=== PATIENT | female | born 1930 | race Caucasian/White ===

== ENCOUNTER → 2017-06-07 | Outpatient (CLI) | payer OTHER ==
[2016-04-09 12:54] VITALS: BP 158/94
--- NOTE | 2017-06-07 13:53 | CT ---
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 Comparison: None Findings: The ventricles and sulci are prominent without mass effect. There is periventricular white matter disease most severe posteriorly in the parietal lobes. There is no hemorrhage or mass or kimberly ma or subdural collection of fluid. The paranasal sinuses are clear. There is a subcutaneous hematom a posteriorly. There is no skull fracture or depression. Impression: 1. No acute intracranial disease 2. 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 3. Mild atrophy Reported By:
== END | disposition home or self-care (01) ==
LOC: RAD 13:23
PROVIDERS: ATTEND Obstetrics & Gynecology Obstetrics
DX: G31.89 Other specified degenerative diseases of nervous system (principal); W19.XXXA Unspecified fall, initial encounter
CPT/HCPCS: 70450

== ENCOUNTER 2017-06-09 16:43 | Emergency (ER) | payer OTHER ==
[2017-06-09 17:58] VITALS: BP 112/58; BMI 20.1
== END 2017-06-09 19:03 | disposition other institution (70) ==
LOC: ER 18:39
DX: M25.551 Pain in right hip (principal); W19.XXXA Unspecified fall, initial encounter; Y92.9 Unspecified place or not applicable
CPT/HCPCS: 96374; 99282; A4222

== ENCOUNTER 2017-06-09 18:37 | Inpatient (IN) | payer OTHER ==
[2017-06-09] MEDS ORDERED: MORPHINE SULFATE INJ 2 MG IVP PRN (18:41)
[2017-06-09 19:58] LABS: BASOPHILS % (AUTO) 0.2 % (0.2-1.0); EOSINOPHILS % (AUTO) 0.3 % (0.9-2.9); HEMATOCRIT 34.8 % (36.0-47.0); HEMOGLOBIN 11.8 g/dL (12.0-16.0); LYMPHOCYTES # (AUTO) 0.6 X10^3/uL (1.3-2.9); LYMPHOCYTES % (AUTO) 7.8 % (21.0-51.0); MEAN CORPUSCULAR HEMOGLOBIN 31.5 pg (27.0-34.0); MEAN CORPUSCULAR VOLUME 92.4 fL (80.0-100.0); MEAN PLATELET VOLUME 9.5 fL (7.4-11.0); MONOCYTES # (AUTO) 0.3 x10^3/uL (0.3-0.8); MONOCYTES % (AUTO) 3.9 % (0.0-13.0); NEUTROPHILS # (AUTO) 6.7 x10^3/uL (2.2-4.8); NEUTROPHILS % (AUTO) 87.8 % (42.0-75.0); PLATELET COUNT 133 X10^3/uL (150.0-450.0); RED BLOOD COUNT 3.76 X10^6/uL (3.5-5.4); RED CELL DISTRIBUTION WIDTH 13.5 % (11.6-16.5); WHITE BLOOD COUNT 7.6 X10^3/uL (3.6-10.0)
[2017-06-09 20:14] LABS: ALANINE AMINOTRANSFERASE 25 Units/L (12-78); ALBUMIN 2.9 g/dL (3.4-5.0); ALKALINE PHOSPHATASE 75 Units/L (46-116); ASPARTATE AMINO TRANSFERASE 30 Units/L (15-37); BLOOD UREA NITROGEN 32 mg/dL (7-18); CALCIUM 9.3 mg/dL (8.5-10.1); CARBON DIOXIDE 23.6 mmol/L (21-32); CHLORIDE 105 mmol/L (98-107); COR CA(FOR HYPOALB) 10.2 mg/dL (8.5-10.1); CREATININE 1.25 mg/dL (0.55-1.02); GLUCOSE 107 mg/dL (65-99); SODIUM 137 mmol/L (136-145); TOTAL PROTEIN 6.8 g/dL (6.4-8.2); eGFR BLACK RACES 53 (>60); eGFR NON BLACK RACES 43 (>60)
[2017-06-09] MEDS: NS 1000 ML 1,000 ML IV SCH (22:04)
[2017-06-10 08:24] LABS: BASOPHILS % (AUTO) 0.1 % (0.2-1.0); EOSINOPHILS # (AUTO) 0.1 x10^3/uL (0.0-0.2); EOSINOPHILS % (AUTO) 0.9 % (0.9-2.9); HEMATOCRIT 36.9 % (36.0-47.0); HEMOGLOBIN 12.6 g/dL (12.0-16.0); LYMPHOCYTES # (AUTO) 0.9 X10^3/uL (1.3-2.9); LYMPHOCYTES % (AUTO) 13.5 % (21.0-51.0); MEAN CORPUSCULAR HEMOGLOBIN 31.5 pg (27.0-34.0); MEAN CORPUSCULAR VOLUME 92.5 fL (80.0-100.0); MEAN PLATELET VOLUME 10.5 fL (7.4-11.0); MONOCYTES # (AUTO) 0.3 x10^3/uL (0.3-0.8); MONOCYTES % (AUTO) 4.6 % (0.0-13.0); NEUTROPHILS # (AUTO) 5.2 x10^3/uL (2.2-4.8); NEUTROPHILS % (AUTO) 80.9 % (42.0-75.0); PLATELET COUNT 136 X10^3/uL (150.0-450.0); RED BLOOD COUNT 3.99 X10^6/uL (3.5-5.4); WHITE BLOOD COUNT 6.5 X10^3/uL (3.6-10.0)
[2017-06-10 08:49] LABS: ALANINE AMINOTRANSFERASE 26 Units/L (12-78); ALKALINE PHOSPHATASE 78 Units/L (46-116); ASPARTATE AMINO TRANSFERASE 33 Units/L (15-37); BLOOD UREA NITROGEN 28 mg/dL (7-18); CALCIUM 9.1 mg/dL (8.5-10.1); CARBON DIOXIDE 23.8 mmol/L (21-32); CHLORIDE 101 mmol/L (98-107); COR CA(FOR HYPOALB) 9.9 mg/dL (8.5-10.1); CREATININE 1.04 mg/dL (0.55-1.02); GLUCOSE 78 mg/dL (65-99); SODIUM 130 mmol/L (136-145); TOTAL PROTEIN 7.2 g/dL (6.4-8.2); eGFR BLACK RACES > 60 (>60); eGFR NON BLACK RACES 54 (>60)
[2017-06-10 09:02] LABS: BILIRUBIN,URINE NEGATIVE (NEGATIVE); BLOOD/HEMOGLOBIN,URINE 3+ (NEGATIVE); GLUCOSE, URINE 1+ (NEGATIVE); KETONES,URINE 1+ (NEGATIVE); LEUKOCYTE ESTERASE ,URINE 1+ (NEGATIVE); NITRITES,URINE NEGATIVE (NEGATIVE); PROTEIN,URINE 2+ (NEGATIVE); UROBILINOGEN,URINE NORMAL (NORMAL)
[2017-06-10] MEDS ORDERED: MARCAINE/EPINEPHRINE ONE (09:21)
[2017-06-10] MEDS ORDERED: BACITRACIN VIAL ONE ×2 (09:22→09:23)
[2017-06-10] MEDS ORDERED: LR 1000 ML IV 1,000 ML IV ONE (09:42)
[2017-06-10] MEDS ORDERED: NS 50 ML IV + SPIKE MINIBAG* 50 ML IV ONE (09:43)
[2017-06-10] MEDS ORDERED: ANCEF VIAL 1 GM ONE (09:43)
[2017-06-10 10:04] LABS: APPEARANCE,URINE CLEAR (CLEAR); COLOR,URINE YELLOW (YELLOW)
[2017-06-10 10:05] LABS: BACTERIA,URINE NEGATIVE /HPF (NEGATIVE); SQUAMOUS EPITHELIAL CELL,UR FEW /HPF (NEGATIVE)
[2017-06-10] MEDS ORDERED: XYLOCAINE 2% and EPINEPHRINE 1:100,000 ONE (10:05)
[2017-06-10 10:06] LABS: AMORPHOUS SEDIMENT,UR TRACE /HPF (NEGATIVE); HYALINE CASTS, URINE FEW /LPF (NEGATIVE)
[2017-06-10] MEDS ORDERED: MARCAINE 0.5% 52 ML, NS 1000 ML 348 ML IJ PRN ×2 (10:37)
[2017-06-10] MEDS ORDERED: Q PUMP EPI PRN (10:37)
--- NOTE | 2017-06-10 10:46 | DR.CONSULT ---
Consult - Consultation for Day of: Date: 06/10/17 (rt hip intra capsular neck displaced fracture) - Chief Complaint Chief Complaint: long term resident. sustained a hip fracture. - Allergies Allergies/Adverse Reactions: Allergies Allergy/AdvReac Type Severity Reaction Status Date / Time No Known Drug Allergies Allergy Verified 06/10/17 00:51 [NKDA] - History of Present Illness History of Present Illness: fall and sustained rt hip fracture. unable to walk since then. - Past Medical History Past Medical History: Hypertension - Family History Family Medical History: Cancer, Hypertension - Social History Type of Tobacco Use: Smokeless How many years tobacco product used: 50 Alcohol Use: None Drug Use: None - Medications Home Medications: Acetaminophen [TYLENOL 325 MG TAB *] 650 mg PO Q4H 06/09/17 [History Confirmed 06/09/17] Lisinopril 5 mg PO DAILY 06/09/17 [History Confirmed 06/09/17] Megestrol Acetate [MEGACE TAB 40 MG *] 40 mg PO BID 06/09/17 [History Confirmed 06/09/17] Nicotine Patch 7 mg/24 Hr [NICODERM PATCH 7 MG *] 1 patch TD DAILY 06/09/17 [ History Confirmed 06/09/17] Quetiapine Fumarate [Seroquel] 50 mg PO DAILY 06/09/17 [History Confirmed ] - Physical Exam Vital Signs: Temperature 98.3 F Pulse Rate [Left Brachial] 73 Pulse Rate [Right Radial] 73 Respiratory Rate 20 Blood Pressure [Left Arm] 122/67 Blood Pressure [Right Arm] 142/74 Blood Pressure 112/58 O2 Sat by Pulse Oximetry 97 Musculoskeletal: Right, Hip, Swelling, Tender - Plan Plan: rt hip suma/total hip
--- NOTE | 2017-06-10 10:51 | DR.H&P ---
H&P - History & Physical for Day of: H&P Date: 06/10/17 (rt hip intra capsular neck fracture) - Chief Complaint Chief Complaint: slip and fall at the assisted. rt hip fracture. - Allergies Allergies/Adverse Reactions: Allergies Allergy/AdvReac Type Severity Reaction Status Date / Time No Known Drug Allergies Allergy Verified 06/10/17 00:51 [NKDA] - History of Present Illness History of Present Illness: fall and fractured the right hip. - Past Medical History Past Medical History: Hypertension - Family History Family Medical History: Cancer, Hypertension - Social History Type of Tobacco Use: Smokeless How many years tobacco product used: 50 Alcohol Use: None Drug Use: None - Medications Home Medications: Acetaminophen [TYLENOL 325 MG TAB *] 650 mg PO Q4H 06/09/17 [History Confirmed 06/09/17] Lisinopril 5 mg PO DAILY 06/09/17 [History Confirmed 06/09/17] Megestrol Acetate [MEGACE TAB 40 MG *] 40 mg PO BID 06/09/17 [History Confirmed 06/09/17] Nicotine Patch 7 mg/24 Hr [NICODERM PATCH 7 MG *] 1 patch TD DAILY 06/09/17 [ History Confirmed 06/09/17] Quetiapine Fumarate [Seroquel] 50 mg PO DAILY 06/09/17 [History Confirmed ] - Physical Exam Vital Signs: Temperature 98.3 F Pulse Rate [Left Brachial] 73 Pulse Rate [Right Radial] 73 Respiratory Rate 20 Blood Pressure [Left Arm] 122/67 Blood Pressure [Right Arm] 142/74 Blood Pressure 112/58 O2 Sat by Pulse Oximetry 97 Musculoskeletal: Right, Hip, Swelling, Tender - Assessment/Plan (1) Fracture of hip, right, closed Qualifiers: Encounter type: E Fracture healing: F Status: Acute (2) Osteoporosis Qualifiers: Osteoporosis type: O Presence of current pathological fracture: P Encounter type: E Fracture healing: F Status: Acute
[2017-06-10] MEDS ORDERED: NS IRRIGATION 3000 ML 3,000 ML with BACITRACIN VIAL 50,000 UNT IR ONE ×4 (11:28→11:29)
[2017-06-10] MEDS ORDERED: NS IRRIGATION 1000 ML 1,000 ML with BACITRACIN VIAL 50,000 UNT IR ONE ×2 (11:28)
[2017-06-10] MEDS ORDERED: REGLAN INJ 10 MG VIAL IVP PRN (13:21)
[2017-06-10] MEDS ORDERED: BENADRYL INJ 50 MG VIAL IVP PRN (13:21)
[2017-06-10] MEDS ORDERED: PHENERGAN INJ 25 MG IVP PRN (13:21)
[2017-06-10] MEDS ORDERED: ZOFRAN INJ 4 MG VIAL IVP PRN (13:21)
[2017-06-10] MEDS ORDERED: DILAUDID INJ IVP PRN (13:21)
--- NOTE | 2017-06-10 14:01 | RAD ---
CLINICAL HISTORY: Postop COMPARISON: June 09, 2017 FINDINGS: Right hip arthroplasty prosthesis in place. Unremarkable alignment of the right hip prosthesis. Soft tissue emphysema and edema and surgical leisa in place. IMPRESSION: Postoperative changes as discussed above. Reported By:
[2017-06-10 14:03] LABS: HEMATOCRIT 30.6 % (36.0-47.0); HEMOGLOBIN 10.3 g/dL (12.0-16.0)
[2017-06-10] MEDS ORDERED: XYLOCAINE 2 % (PLAIN) ONE (14:35)
[2017-06-10] MEDS ORDERED: VERSED ONE (14:35)
[2017-06-10] MEDS ORDERED: DIPRIVAN VIAL ONE (14:35)
[2017-06-10] MEDS ORDERED: EPHEDRINE SULFATE INJ ONE (14:35)
[2017-06-10] MEDS ORDERED: KETALAR ONE (14:51)
--- NOTE | 2017-06-10 15:08 | RAD ---
CLINICAL HISTORY: Postop COMPARISON: June 09, 2017 FINDINGS/IMPRESSION: Right hip arthroplasty prosthesis in place. Soft tissue emphysema and surgical leisa in place. Unr emarkable alignment of the prosthesis. Reported By:
[2017-06-10] MEDS: ANCEF VIAL 1 GM 1 GM in NS 50 ML IV + SPIKE MINIBAG* 50 ML IV SCH ×2 (16:32→20:30)
[2017-06-10] MEDS: NS 1000 ML 1,000 ML IV SCH ×2 (16:33→19:40)
--- NOTE | 2017-06-10 21:46 | RAD ---
Portable chest Indication: Preop Comparison: None available. Impression: Heart size is normal. The lungs are hyperexpanded with mild chronic interstitial prominence but othe rwise clear. There is no edema, effusion, focal consolidation, or pneumothorax. There is diffuse ost eopenia. Reported By:
[2017-06-10] MEDS: PERCOCET TAB 5/325 MG PO PRN (23:48)
[2017-06-11 02:31] VITALS: BMI 17.4
[2017-06-11] MEDS: ANCEF VIAL 1 GM 1 GM in NS 50 ML IV + SPIKE MINIBAG* 50 ML IV SCH ×4 (02:31→19:35)
[2017-06-11 05:18] LABS: BLOOD UREA NITROGEN 21 mg/dL (7-18); CALCIUM 7.8 mg/dL (8.5-10.1); CARBON DIOXIDE 22.5 mmol/L (21-32); CHLORIDE 105 mmol/L (98-107); CREATININE 0.93 mg/dL (0.55-1.02); GLUCOSE 82 mg/dL (65-99); SODIUM 136 mmol/L (136-145); eGFR BLACK RACES > 60 (>60); eGFR NON BLACK RACES > 60 (>60)
[2017-06-11 05:31] LABS: BASOPHILS % (AUTO) 0.1 % (0.2-1.0); EOSINOPHILS % (AUTO) 0.4 % (0.9-2.9); HEMOGLOBIN 9.3 g/dL (12.0-16.0); LYMPHOCYTES # (AUTO) 0.9 X10^3/uL (1.3-2.9); LYMPHOCYTES % (AUTO) 11.9 % (21.0-51.0); MEAN CORPUSCULAR HEMOGLOBIN 32.1 pg (27.0-34.0); MEAN CORPUSCULAR HGB CONC 34.3 g/dL (33.0-35.0); MEAN CORPUSCULAR VOLUME 93.5 fL (80.0-100.0); MEAN PLATELET VOLUME 10.5 fL (7.4-11.0); MONOCYTES # (AUTO) 0.5 x10^3/uL (0.3-0.8); MONOCYTES % (AUTO) 6.5 % (0.0-13.0); NEUTROPHILS # (AUTO) 5.8 x10^3/uL (2.2-4.8); NEUTROPHILS % (AUTO) 81.1 % (42.0-75.0); PLATELET COUNT 122 X10^3/uL (150.0-450.0); RED BLOOD COUNT 2.89 X10^6/uL (3.5-5.4); RED CELL DISTRIBUTION WIDTH 13.5 % (11.6-16.5); WHITE BLOOD COUNT 7.1 X10^3/uL (3.6-10.0)
[2017-06-11] MEDS: PERCOCET TAB 5/325 MG PO PRN ×2 (10:42→22:44)
[2017-06-11 14:12] LABS: HEMATOCRIT 28.9 % (36.0-47.0)
[2017-06-11] MEDS ORDERED: TYLENOL 325 MG TAB PO PRN (15:17)
[2017-06-11] MEDS: NS 1000 ML 1,000 ML IV SCH (22:45)
[2017-06-12] MEDS: ANCEF VIAL 1 GM 1 GM in NS 50 ML IV + SPIKE MINIBAG* 50 ML IV SCH ×3 (02:20→13:56)
[2017-06-12 05:21] LABS: BLOOD UREA NITROGEN 13 mg/dL (7-18); CARBON DIOXIDE 23.9 mmol/L (21-32); CHLORIDE 105 mmol/L (98-107); CREATININE 0.82 mg/dL (0.55-1.02); GLUCOSE 86 mg/dL (65-99); SODIUM 136 mmol/L (136-145); eGFR BLACK RACES > 60 (>60); eGFR NON BLACK RACES > 60 (>60)
[2017-06-12 05:25] LABS: BASOPHILS % (AUTO) 0.1 % (0.2-1.0); EOSINOPHILS # (AUTO) 0.1 x10^3/uL (0.0-0.2); EOSINOPHILS % (AUTO) 0.8 % (0.9-2.9); HEMATOCRIT 25.9 % (36.0-47.0); LYMPHOCYTES # (AUTO) 0.9 X10^3/uL (1.3-2.9); LYMPHOCYTES % (AUTO) 12.2 % (21.0-51.0); MEAN CORPUSCULAR HGB CONC 34.5 g/dL (33.0-35.0); MEAN CORPUSCULAR VOLUME 92.8 fL (80.0-100.0); MEAN PLATELET VOLUME 10.5 fL (7.4-11.0); MONOCYTES # (AUTO) 0.5 x10^3/uL (0.3-0.8); MONOCYTES % (AUTO) 6.1 % (0.0-13.0); NEUTROPHILS # (AUTO) 6.2 x10^3/uL (2.2-4.8); NEUTROPHILS % (AUTO) 80.8 % (42.0-75.0); PLATELET COUNT 112 X10^3/uL (150.0-450.0); RED CELL DISTRIBUTION WIDTH 13.8 % (11.6-16.5); WHITE BLOOD COUNT 7.6 X10^3/uL (3.6-10.0)
[2017-06-12] MEDS: NS 1000 ML 1,000 ML IV SCH (05:26)
[2017-06-12] MEDS ORDERED: NICODERM PATCH TD SCH (09:00)
[2017-06-12] MEDS ORDERED: ZESTRIL TAB 5 MG PO SCH (09:00)
[2017-06-12] MEDS: PERCOCET TAB 5/325 MG PO PRN (09:59)
[2017-06-12] MEDS ORDERED: DULCOLAX SUPPOSITORY 10 MG RECTAL ONE (11:26)
[2017-06-12] MEDS ORDERED: DULCOLAX SUPPOSITORY 10 MG ONE (13:41)
[2017-06-12 16:51] VITALS: BP 111/55
--- NOTE | 2017-06-13 10:24 | PCM.PROG ---
Progress Note - Progress Note for Day of Date: 06/12/17 (post op visit) - Subjective Subjective: she is doing well. she is ambulating well. her pain is well managed now. - Past Medical Family Social History Allergies: Allergies No Known Drug Allergies [NKDA] Allergy (Verified 06/10/17 00:51) - Vital Signs and I&O's Vital Signs: Temperature 97.5 F Pulse Rate [Left Brachial] 106 Pulse Rate [Right Radial] 73 Pulse Rate 76 Respiratory Rate 16 Blood Pressure [Left Arm] 111/55 Blood Pressure [Right Arm] 142/74 Blood Pressure 120/58 O2 Sat by Pulse Oximetry 99 Intake and Output: Intake & Output 06/10/17 06/11/17 06/12/17 06/13/17 11:59 11:59 11:59 11:59 Intake Total 50 470 820 240 Output Total 5250 325 400 400 Balance -5200 145 420 -160 - Physical Exam Musculoskeletal: Right (surgical wound clean and dry. ), Hip, Swelling, Tender Mood Description: Calm Speech Pattern: Clear, Appropriate - Laboratory and Diagnostics Result Diagrams: 06/12/17 04:30 06/12/17 04:30 Labs: Laboratory WBC 7.6 X10^3/uL (3.6-10.0) 06/12/17 04:30 RBC 2.80 X10^6/uL (3.5-5.4) L 06/12/17 04:30 Hgb 9.0 g/dL (12.0-16.0) L 06/12/17 04:30 Hct 25.9 % (36.0-47.0) L 06/12/17 04:30 MCV 92.8 fL (80.0-100.0) 06/12/17 04:30 MCH 32.0 pg (27.0-34.0) 06/12/17 04:30 MCHC 34.5 g/dL (33.0-35.0) 06/12/17 04:30 RDW 13.8 % (11.6-16.5) 06/12/17 04:30 Plt Count 112 X10^3/uL (150.0-450.0) L 06/12/17 04:30 MPV 10.5 fL (7.4-11.0) 06/12/17 04:30 Neut % 80.8 % (42.0-75.0) H 06/12/17 04:30 Lymph % 12.2 % (21.0-51.0) L 06/12/17 04:30 [place] % 6.1 % (0.0-13.0) 06/12/17 04:30 Eos % 0.8 % (0.9-2.9) L 06/12/17 04:30 Baso % 0.1 % (0.2-1.0) L 06/12/17 04:30 Neut # 6.2 x10^3/uL (2.2-4.8) H 06/12/17 04:30 Lymph # 0.9 X10^3/uL (1.3-2.9) L 06/12/17 04:30 [place] # 0.5 x10^3/uL (0.3-0.8) 06/12/17 04:30 Eos # 0.1 x10^3/uL (0.0-0.2) 06/12/17 04:30 Baso # 0.0 X10^3/uL (0.0-0.1) 06/12/17 04:30 Absolute Nucleated RBC 0.0 /100WBC 06/12/17 04:30 INR Target Range - 06/09/17 22:25 INR 1.21 (0.8-1.3) 06/09/17 22:25 PTT 36.6 SECONDS (22.9-36.5) H 06/09/17 22:25 PTT Comment - 06/09/17 22:25 Sodium 136 mmol/L (136-145) 06/12/17 04:30 Corrected Sodium TNP 06/12/17 04:30 Potassium 4.2 mmol/L (3.5-5.1) 06/12/17 04:30 Chloride 105 mmol/L (98-107) 06/12/17 04:30 Carbon Dioxide 23.9 mmol/L (21-32) 06/12/17 04:30 BUN 13 mg/dL (7-18) 06/12/17 04:30 Creatinine 0.82 mg/dL (0.55-1.02) 06/12/17 04:30 Est GFR (MDRD) Af Amer > 60 (>60) 06/12/17 04:30 Est GFR (MDRD) Non-Af > 60 (>60) 06/12/17 04:30 Glucose 86 mg/dL (65-99) 06/12/17 04:30 Calcium 8.0 mg/dL (8.5-10.1) L 06/12/17 04:30 Corrected Calcium 9.9 mg/dL (8.5-10.1) 06/10/17 07:05 Total Bilirubin 1.70 mg/dL (0.2-1.0) H 06/10/17 07:05 AST 33 Units/L (15-37) 06/10/17 07:05 ALT 26 Units/L (12-78) 06/10/17 07:05 Alkaline Phosphatase 78 Units/L (46-116) 06/10/17 07:05 Total Protein 7.2 g/dL (6.4-8.2) 06/10/17 07:05 Albumin 3.0 g/dL (3.4-5.0) L 06/10/17 07:05 Globulin 4.2 g/dL (2.5-4.5) 06/10/17 07:05 Albumin/Globulin Ratio 0.7 Ratio (1.1-2.1) L 06/10/17 07:05 Specimen Type Catherized urine 06/10/17 08:10 Urine Color Yellow (YELLOW) 06/10/17 08:10 Urine Appearance Clear (CLEAR) 06/10/17 08:10 Urine pH 5.0 (5.0 - 8.0) 06/10/17 08:10 Ur Specific [place] 1.020 (1.000-1.030) 06/10/17 08:10 Urine Protein 2+ (NEGATIVE) 06/10/17 08:10 Urine Glucose (UA) 1+ (NEGATIVE) 06/10/17 08:10 Urine Ketones 1+ (NEGATIVE) 06/10/17 08:10 Urine Occult Blood 3+ (NEGATIVE) 06/10/17 08:10 Urine Nitrite Negative (NEGATIVE) 06/10/17 08:10 Urine Bilirubin Negative (NEGATIVE) 06/10/17 08:10 Urine Urobilinogen Normal (NORMAL) 06/10/17 08:10 Ur Leukocyte Esterase 1+ (NEGATIVE) 06/10/17 08:10 Urine RBC 02 - 05 /HPF (NEGATIVE) 06/10/17 08:10 Urine WBC 01 - 03 /HPF (NEGATIVE) 06/10/17 08:10 Ur Squamous Epith Cells Few /HPF (NEGATIVE) 06/10/17 08:10 Amorphous Sediment Trace /HPF (NEGATIVE) 06/10/17 08:10 Urine Bacteria Negative /HPF (NEGATIVE) 06/10/17 08:10 Hyaline Casts Few /LPF (NEGATIVE) 06/10/17 08:10 Ur Culture Indicated? No/not indicated 06/10/17 08:10 Blood Type O NEGATIVE 06/09/17 22:25 Antibody Screen Negative 06/09/17 22:25 Crossmatch See Detail 06/09/17 22:25 - Plan (1) Fracture of hip, right, closed Status: Acute Qualifiers: Encounter type: E Fracture healing: F Plan: status post rt hip suma replacement. 1. WB as tolerated. 2. Follow hip precations in bed for 6 weeks. 3.Anti DVT as advised. 4. Follw up in office at 2 weeks. (2) Osteoporosis Status: Acute Qualifiers: Osteoporosis type: O Presence of current pathological fracture: P Encounter type: E Fracture healing: F
== END 2017-06-12 18:10 | DRG 481 ==
LOC: MED/SURG 18:37
PROVIDERS: ADMIT Internal Medicine; ATTEND Obstetrics & Gynecology Obstetrics
PROC: 0QS604Z Reposition Right Upper Femur with Internal Fixation Device, Open Approach (ICD-10-PCS; principal; 2017-06-09)
DX: S72.011A Unspecified intracapsular fracture of right femur, initial encounter for closed fracture (principal); W18.39XA Other fall on same level, initial encounter; Y92.128 Other place in nursing home as the place of occurrence of the external cause; M80.851A Other osteoporosis with current pathological fracture, right femur, initial encounter for fracture; F03.90 Unspecified dementia, unspecified severity, without behavioral disturbance, psychotic disturbance, mood disturbance, and anxiety; R26.89 Other abnormalities of gait and mobility; I10 Essential (primary) hypertension
CPT/HCPCS: 36415; 71010; 72170; 73501; 80048; 80053; 81001; 85014; 85018; 85025; 85610; 85730; 86850; 86900; 86901; 86922; 93005; 93010; 94762; 99231; A4216; A4222; S0020; J0690; J2001; J2250; J2270; J3490; J7120

== ENCOUNTER 2017-06-15 17:18 | Emergency (ER) | payer OTHER ==
[~2017-06-15 17:18] MED LIST: NARCAN INJ ONE
[2017-06-15 17:26] VITALS: BMI 19.5
[2017-06-15] MEDS ORDERED: NARCAN INJ IVP ONE ×2 (17:28→17:45)
[2017-06-15] MEDS ORDERED: ASPIRIN 81 MG CHEWTAB ONE (17:41)
[2017-06-15] MEDS ORDERED: NARCAN INJ ONE (17:44)
[2017-06-15] MEDS ORDERED: NS 1000 ML 300 ML IV SCH (18:00)
[2017-06-15] MEDS ORDERED: ASPIRIN 81 MG CHEWTAB PO SCH (18:00)
[2017-06-15] MEDS ORDERED: CARDIZEM INJ 50 MG VIAL ONE (18:07)
[2017-06-15] MEDS ORDERED: CARDIZEM INJ 50 MG VIAL IVP ONE (18:10)
--- NOTE | 2017-06-15 18:36 | DR.AMS ---
HPI - Time Seen Time seen: 16:00 - PCP Primary Care Physician: JULIUS BOOTH - HPI Comment HPI Comment: Pt was was noted by [facility] staff to have a faint pulse.She was immediately wheeled to the ED and upon arrival was arousable with a pulse of 80. She is demented and unable to give any info. - Complaint Cheif Complaint Doctors Comments: Faint pulse per nusing home staff. Chief Complaint:: PT ANTUNEZ OVER IN STRETCHER PER TONH WITH C/O STAFF NO ABLE TO GET VS ON PT AND A FAINT PULSE.. Self Treatment fo Chief Complaint: PT IS PALE AND ARROUSES TO STERNAL STIMULI,, - Reviewed Nurses Notes Reviewed: Yes - Source History Provided: [facility] - Mode of Arrival Mode of Arrival: Stretcher - Timing Onset of Chief Complaint: 06/15/17 Came On: Suddenly Symptoms: Improving Symptom Onset: Unknown - Duration Duration: Unknown - Quality Quality: Decreased Alertness, Confusion - Severity Severity: Moderate - Context Recent: None History Of: Dementia - Associated Signs and Symptoms Associated Signs and Symptoms: None PMH - PMH Past Medical History: Yes Past Medical History: Hypertension Past Surgical History: No - Family History History of Family Medical Conditions: No - Social History Does patient currently use any type of tobacco product: No Have you used tobacco products in the last 12 months: No Type of Tobacco Use: None Does any household member use tobacco: No Alcohol Use: None Do you use any recreational Drugs:: No Lives With: Family Lives Where: [facility] - infectious screening In the last 2 months have you had wt loss of >10#?: NO Have you had fever, night sweats or hemotysis?: No Have you traveled outside the country in the last 6 months?: No Isolation: Standard ROS - Review of Systems Unable to Obtain Due To: Dementia PE - Vitals Vital Signs: Temp Pulse Pulse Resp BP BP BP 06/15/17 19:15 61 18 71/34 06/15/17 19:00 62 16 79/32 06/15/17 18:22 72 16 101/52 06/15/17 17:22 98.0 F 100 H 20 80/40 06/14/17 16:07 112/58 06/12/17 16:00 111/55 06/10/17 04:00 142/74 Pulse Ox 06/15/17 19:15 97 06/15/17 19:00 95 06/15/17 18:22 100 06/15/17 17:22 97 06/14/17 16:07 06/12/17 16:00 06/10/17 04:00 - General Limitations: Altered Mental Status General Appearance: Lethargic - Head Head Exam: Normal Inspection, Atraumatic - Eyes Eye exam: Normal Appearance, PERRL - ENT ENT Exam: Normal Exam, Normal Oropharynx, Mucous Membranes Moist Nose Exam: Normal Nose Exam Mouth Exam: Normal Inspection Throat Exam: Normal Inspection - Neck Neck Exam: Normal Inspection, Trachea Midline - Chest Chest Inspection: Normal Inspection, Symmetric Chest Wall Rise - Respiratory Respiratory Exam: Normal Lung Sounds Bilat Respiratory Exam: Bilateral Clear to Auscultation - Cardiovascular Cardiovascular Exam: Tachycardia, Irregular Rhythm - Abdominal Exam Abdominal Exam: Normal Inspection, Normal Bowel Sounds, Soft - Neurological Neurological Exam: Other (on stretcher, s/p hip fracture/ healing slowly) - Psychological Psychiatric Exam: Depressed - Skin Skin Exam: Warm, Dry, Intact, Normal Color MDM - Differential Diagnosis Metabolic: Dehydration Course - Reevaluation 1st: Improved ROR - Labs Reviewed Laboratory Results Reviewed?: Yes Result Diagrams: 06/15/17 17:37 06/15/17 17:27 Laboratory: WBC 8.8 X10^3/uL (3.6-10.0) 06/15/17 17:37 RBC 2.79 X10^6/uL (3.5-5.4) L 06/15/17 17:37 Hgb 8.9 g/dL (12.0-16.0) L 06/15/17 17:37 Hct 26.1 % (36.0-47.0) L 06/15/17 17:37 MCV 93.8 fL (80.0-100.0) 06/15/17 17:37 MCH 31.9 pg (27.0-34.0) 06/15/17 17:37 MCHC 34.0 g/dL (33.0-35.0) 06/15/17 17:37 RDW 14.0 % (11.6-16.5) 06/15/17 17:37 Plt Count 229 X10^3/uL (150.0-450.0) 06/15/17 17:37 MPV 9.7 fL (7.4-11.0) 06/15/17 17:37 Neut % 75.9 % (42.0-75.0) H 06/15/17 17:37 Lymph % 16.7 % (21.0-51.0) L 06/15/17 17:37 [place] % 5.9 % (0.0-13.0) 06/15/17 17:37 Eos % 1.1 % (0.9-2.9) 06/15/17 17:37 Baso % 0.4 % (0.2-1.0) 06/15/17 17:37 Neut # 6.7 x10^3/uL (2.2-4.8) H 06/15/17 17:37 Lymph # 1.5 X10^3/uL (1.3-2.9) 06/15/17 17:37 [place] # 0.5 x10^3/uL (0.3-0.8) 06/15/17 17:37 Eos # 0.1 x10^3/uL (0.0-0.2) 06/15/17 17:37 Baso # 0.0 X10^3/uL (0.0-0.1) 06/15/17 17:37 Absolute Nucleated RBC 0.0 /100WBC 06/15/17 17:37 Sodium 139 mmol/L (136-145) 06/15/17 17:27 Corrected Sodium TNP 06/15/17 17:27 Potassium 4.3 mmol/L (3.5-5.1) 06/15/17 17:27 Chloride 106 mmol/L (98-107) 06/15/17 17:27 Carbon Dioxide 24.2 mmol/L (21-32) 06/15/17 17:27 BUN 25 mg/dL (7-18) H 06/15/17 17:27 Creatinine 1.21 mg/dL (0.55-1.02) H 06/15/17 17:27 Est GFR (MDRD) Af Amer 55 (>60) L 06/15/17 17:27 Est GFR (MDRD) Non-Af 45 (>60) L 06/15/17 17:27 Glucose 110 mg/dL (65-99) H 06/15/17 17:27 Calcium 8.3 mg/dL (8.5-10.1) L 06/15/17 17:27 Corrected Calcium 10.0 mg/dL (8.5-10.1) 06/15/17 17:27 Total Bilirubin 0.90 mg/dL (0.2-1.0) 06/15/17 17:27 AST 22 Units/L (15-37) 06/15/17 17:27 ALT 11 Units/L (12-78) L 06/15/17 17:27 Alkaline Phosphatase 85 Units/L (46-116) 06/15/17 17:27 Creatine Kinase 44 Units/L (26-192) 06/15/17 20:25 CK-MB (CK-2) < 1.0 ng/mL (0-4.0) 06/15/17 20:25 CK/CKMB % Calc 2.3 % (<4) 06/15/17 20:25 Troponin I 0.04 ng/mL (0-1.5) 06/15/17 20:25 Total Protein 6.1 g/dL (6.4-8.2) L 06/15/17 17:27 Albumin 1.9 g/dL (3.4-5.0) L 06/15/17 17:27 Globulin 4.2 g/dL (2.5-4.5) 06/15/17 17:27 Albumin/Globulin Ratio 0.5 Ratio (1.1-2.1) L 06/15/17 17:27 - Diagnosis Discharge Problem: Dehydration, Supraventricular bigeminy, Supraventricular tachycardia by ECG Fracture of hip, right, closed Qualifiers: Encounter type: sequela Qualified Code(s): S72.001S - Fracture of unspecified part of neck of right femur, sequela Altered mental status, unspecified Qualifiers: Altered mental status type: disorientation Qualified Code(s): R41.0 - Disorientation, unspecified Hypotension Qualifiers: Hypotension type: idiopathic hypotension Qualified Code(s): I95.0 - Idiopathic hypotension - Discharge Plan Disposition: 03 [facility] Condition: Stable - Follow ups/Referrals Follow ups/Referrals: KESHA MADRID [Primary Care Provider] - 3 days - Instructions Instructions: Paroxysmal Supraventricular Tachycardia, [id number], Hypotension, [id number]
[2017-06-15 18:42] LABS: ALANINE AMINOTRANSFERASE 11 Units/L (12-78); ALBUMIN 1.9 g/dL (3.4-5.0); ALKALINE PHOSPHATASE 85 Units/L (46-116); ASPARTATE AMINO TRANSFERASE 22 Units/L (15-37); BLOOD UREA NITROGEN 25 mg/dL (7-18); CALCIUM 8.3 mg/dL (8.5-10.1); CARBON DIOXIDE 24.2 mmol/L (21-32); CHLORIDE 106 mmol/L (98-107); CREATININE 1.21 mg/dL (0.55-1.02); GLUCOSE 110 mg/dL (65-99); SODIUM 139 mmol/L (136-145); TOTAL PROTEIN 6.1 g/dL (6.4-8.2); eGFR BLACK RACES 55 (>60); eGFR NON BLACK RACES 45 (>60)
[2017-06-15] MEDS ORDERED: NS 1000 ML 1,000 ML ONE (19:20)
[2017-06-15] MEDS ORDERED: NS 1000 ML 1,000 ML IV SCH (20:00)
--- NOTE | 2017-06-15 20:08 | RAD ---
HISTORY: Altered mental status and hypotension Study: Single view of the chest. Comparison: 2016 Findings: The cardiomediastinal silhouette is normal. No focal consolidations, pleural effusions or pneumothora x. Osseous structures demonstrate no acute abnormality. Coarsened interstitial markings. IMPRESSION: 1. No acute cardiopulmonary process. Reported By:
[2017-06-15 20:45] LABS: BASOPHILS % (AUTO) 0.4 % (0.2-1.0); EOSINOPHILS # (AUTO) 0.1 x10^3/uL (0.0-0.2); EOSINOPHILS % (AUTO) 1.1 % (0.9-2.9); HEMATOCRIT 26.1 % (36.0-47.0); HEMOGLOBIN 8.9 g/dL (12.0-16.0); LYMPHOCYTES # (AUTO) 1.5 X10^3/uL (1.3-2.9); LYMPHOCYTES % (AUTO) 16.7 % (21.0-51.0); MEAN CORPUSCULAR HEMOGLOBIN 31.9 pg (27.0-34.0); MEAN CORPUSCULAR VOLUME 93.8 fL (80.0-100.0); MEAN PLATELET VOLUME 9.7 fL (7.4-11.0); MONOCYTES # (AUTO) 0.5 x10^3/uL (0.3-0.8); MONOCYTES % (AUTO) 5.9 % (0.0-13.0); NEUTROPHILS # (AUTO) 6.7 x10^3/uL (2.2-4.8); NEUTROPHILS % (AUTO) 75.9 % (42.0-75.0); PLATELET COUNT 229 X10^3/uL (150.0-450.0); RED BLOOD COUNT 2.79 X10^6/uL (3.5-5.4); WHITE BLOOD COUNT 8.8 X10^3/uL (3.6-10.0)
[2017-06-15 21:07] LABS: CKMB % 2.3 % (<4); CREATINE KINASE 44 Units/L (26-192); CREATINE KINASE MB < 1.0 ng/mL (0-4.0); TROPONIN I 0.04 ng/mL (0-1.5)
[2017-06-15 23:57] VITALS: BP 101/49
== END 2017-06-15 23:20 ==
LOC: ER 17:18
DX: S72.001S Fracture of unspecified part of neck of right femur, sequela (principal); E86.0 Dehydration; R41.0 Disorientation, unspecified; I95.0 Idiopathic hypotension; R00.8 Other abnormalities of heart beat; I47.1 Supraventricular tachycardia; Y33.XXXA Other specified events, undetermined intent, initial encounter; Y92.129 Unspecified place in nursing home as the place of occurrence of the external cause
CPT/HCPCS: 36415; 71010; 80053; 82550; 82553; 84484; 85025; 93005; 93010; 93041; 96365; 96367; 96374; 96375; 99283; A4222; J2310; J3490

== ENCOUNTER → 2017-06-20 | Outpatient (CLI) | payer OTHER ==
[2017-06-15 23:57] VITALS: BP 101/49
--- NOTE | 2017-06-20 10:58 | RAD ---
HISTORY: Follow up right hip hemiarthroplasty Study: Right hip AP and lateral Comparison: June 10, 2017 Findings: The patient is status post right hip hemiarthroplasty. The prosthetic femoral head is in good positio n within the prosthetic acetabulum. There is no evidence for fracture, loosening, or periarticular so ft tissue abnormality. Surgical leisa are present. IMPRESSION: Status post right hip hemiarthroplasty in good position Reported By:
== END ==
LOC: RAD 09:59
PROVIDERS: ATTEND Orthopaedic Surgery
DX: Z96.641 Presence of right artificial hip joint (principal)
CPT/HCPCS: 73501